=== PATIENT | male | born 1955 | race Caucasian/White ===

== ENCOUNTER → 2017-06-16 | Outpatient (REF) ==
--- NOTE | 2017-06-16 11:23 | REP ---
Left knee series: Five views. History: Degenerative disc disease. Findings: Five views of the left knee demonstrate some vascular calcification. A normal fabella is seen. Joint spaces are preserved. No bony destructive lesion is seen. Impression: No significant bony abnormality. Mild vascular calcification. Signed by Manoj Cee MD 06/16/2017 11:25 A
--- NOTE | 2017-06-16 11:28 | REP ---
Lumbar spine series: Three views. History: Degenerative disc disease. No comparison views. Findings: Frontal and lateral views are obtained. There is moderate diffuse degenerative disc disease throughout the visualized thoracic and lumbar levels. In the lumbar spine, this is most pronounced at L2-3 and L3-4. There is a dextroconvex mild lumbar rotoscoliotic curve. Pedicles and posterior elements are intact. There is no evidence of spondylolysis or spondylolisthesis. There is fairly advanced osteoarthritic facet hypertrophy and sclerosis bilaterally at L5-S1 and L4-5. Sacrum and SI joints are intact. Impression: Fairly advanced degenerative spondylosis changes. Signed by Manoj Cee MD 06/16/2017 12:50 P
== END ==
LOC: M SMT 10:14
PROVIDERS: ATTEND Internal Medicine
DX: M51.36 Other intervertebral disc degeneration, lumbar region (principal)

== ENCOUNTER → 2023-08-10 | Outpatient (CLI) | payer OTHER | LOC: M PLALAB 14:39 | PROVIDERS: ATTEND Psychiatry & Neurology Neurology | DX: R56.9 Unspecified convulsions (principal) ==

== ENCOUNTER 2024-04-18 16:20 | Inpatient (IN) | payer OTHER ==
[2024-04-18] VITALS (9 sets, daily range): BP systolic 136–210; BP diastolic 62–99; TEMP 99.4; O2SAT 91–95
[~2024-04-18] VITALS: Ht 170.2 cm; Wt 67.3 kg
[2024-04-18] MEDS ORDERED: LORazepam 2 MG TAB PO PRN (19:40)
[2024-04-18] MEDS ORDERED: dexmedeTOMIDine (4MCG/ML)200MCG/50ML BTL (PRECEDEX) As Ordered ONE (20:22)
[2024-04-18] MEDS: dexmedeTOMidine 200 MCG in IV 1 EA IV SCH (20:37)
[2024-04-18] MEDS: OLANZapine INTRAMUSCULAR 10MG VIAL IM ONE (20:37)
[2024-04-18] MEDS: THIAMINE 100 MG TAB PO SCH (20:38)
[2024-04-18 21:14] LABS: HEMATOCRIT 40.9 % (42.0-52.0); HEMOGLOBIN 13.7 g/dl (13.5-17.5); MEAN CORPUSCULAR HEMOGLOBIN 30.9 pg (27.0-33.0); MEAN CORPUSCULAR HGB CONC 33.5 g/dl (32.0-36.5); MEAN CORPUSCULAR VOLUME 92.1 fl (80.0-96.0); PLATELET COUNT, AUTOMATED 147 10^3/uL (150-450); RED BLOOD COUNT 4.44 10^6/uL (4.30-6.10); WHITE BLOOD COUNT 8.8 10^3/uL (4.0-10.0)
[2024-04-18] MEDS: hydrALAZINE 20MG/ML 1ML VIAL IV STA (21:28)
[2024-04-18 21:42] LABS: ALBUMIN 3.4 G/DL (3.2-5.2); ALKALINE PHOSPHATASE 125 U/L (46-116); ALT/SGPT 14 U/L (7.0-40); AST/SGOT 36 U/L (<34); BILIRUBIN,TOTAL 0.5 MG/DL (0.3-1.2); BLOOD UREA NITROGEN 12 MG/DL (9-23); CALCIUM LEVEL 8.8 MG/DL (8.3-10.6); CARBON DIOXIDE LEVEL 29 MMOL/L (20-31); CHLORIDE LEVEL 105 MMOL/L (98-107); CREATININE FOR GFR 0.58 MG/DL (0.70-1.30); GLOMERULAR FILTRATION RATE > 60.0 (>49); GLUCOSE, FASTING 125 MG/DL (74-106); POTASSIUM SERUM 4.2 MMOL/L (3.5-5.1); SODIUM LEVEL 138 MMOL/L (136-145); TOTAL PROTEIN 6.6 G/DL (5.7-8.2)
[2024-04-18] MEDS ORDERED: IPRATROPIUM 0.5MG/ALBUTEROL 2.5MG INH SOL UD 3ML (DUONEB) NEB PRN (21:45)
[2024-04-18] MEDS: LR 1,000 ML IV SCH (21:58)
[2024-04-18] MEDS: niCARdipine IV 40 MG in IV 1 EA IV SCH (23:13)
[2024-04-19] VITALS (23 sets, daily range): BP systolic 108–185; BP diastolic 61–97; TEMP 98–99.1; O2SAT 93–99
[2024-04-19] MEDS: OLANZapine INTRAMUSCULAR 10MG VIAL IM ONE (03:25)
[2024-04-19 05:09] LABS: HEMATOCRIT 45.5 % (42.0-52.0); HEMOGLOBIN 15.5 g/dl (13.5-17.5); MEAN CORPUSCULAR HEMOGLOBIN 30.8 pg (27.0-33.0); MEAN CORPUSCULAR HGB CONC 34.1 g/dl (32.0-36.5); MEAN CORPUSCULAR VOLUME 90.5 fl (80.0-96.0); PLATELET COUNT, AUTOMATED 152 10^3/uL (150-450); RED BLOOD COUNT 5.03 10^6/uL (4.30-6.10); WHITE BLOOD COUNT 8.4 10^3/uL (4.0-10.0)
[2024-04-19 05:35] LABS: BLOOD UREA NITROGEN 10 MG/DL (9-23); CALCIUM LEVEL 9.2 MG/DL (8.3-10.6); CARBON DIOXIDE LEVEL 29 MMOL/L (20-31); CHLORIDE LEVEL 106 MMOL/L (98-107); CREATININE FOR GFR 0.48 MG/DL (0.70-1.30); GLOMERULAR FILTRATION RATE > 60.0 (>49); GLUCOSE, FASTING 136 MG/DL (74-106); MAGNESIUM LEVEL 1.7 MG/DL (1.8-2.4); POTASSIUM SERUM 3.8 MMOL/L (3.5-5.1); SODIUM LEVEL 139 MMOL/L (136-145)
[2024-04-19] MEDS: MAG SULF 1GM/100ML (MAG RUN) 1 GM in IV 1 EA IV ONE (05:44)
[2024-04-19] MEDS ORDERED: CLOB5CR TOP (08:44)
[2024-04-19] MEDS ORDERED: DOXY100C3 PO (08:44)
[2024-04-19] MEDS ORDERED: LAMO100T3 PO (08:44)
[2024-04-19] MEDS ORDERED: LEVE10003 PO (08:44)
[2024-04-19] MEDS ORDERED: PRED20TA PO (08:44)
[2024-04-19] MEDS ORDERED: LEXA1TAB PO (08:44)
[2024-04-19] MEDS ORDERED: ALFU10TA23 PO (08:44)
[2024-04-19] MEDS ORDERED: PROP20TA72 PO (08:44)
[2024-04-19] MEDS ORDERED: HYDR-3363 PO (08:44)
[2024-04-19] MEDS ORDERED: BUPR8SUB SL (08:44)
[2024-04-19] MEDS ORDERED: SYMB16INH PO (08:44)
[2024-04-19] MEDS ORDERED: LAMO25TA4 PO (08:44)
[2024-04-19] MEDS ORDERED: GABA-284 PO (08:44)
[2024-04-19] MEDS ORDERED: HOME MED LIST COMPLETE! XX SCH (08:45)
[2024-04-19] MEDS: PROPRANOLOL 20 MG TAB PO SCH (09:00)
[2024-04-19] MEDS: levETIRAcetam 250MG TABLET (KEPPRA) PO SCH (09:00)
[2024-04-19] MEDS: PANTOPRAZOLE 40MG VIAL IV SCH (13:39)
[2024-04-19] MEDS: SYMBICORT 160/4.5MCG INHALER 6GM INH SCH (13:41)
[2024-04-19] MEDS: BUPRENORPHINE HCL 8MG SUBINGUAL TABLET SL SCH (16:00)
[2024-04-19] MEDS: GABAPENTIN 400MG CAP PO SCH (16:00)
[2024-04-19] MEDS: ESCITALOPRAM OXALATE 10 MG TAB (LEXAPRO) PO SCH (17:50)
[2024-04-19] MEDS: FOLIC ACID 1MG TAB PO SCH (17:50)
[2024-04-19] MEDS: MULTIVITAMINS/MINERALS THERAP 1 TAB PO SCH (17:50)
[2024-04-19] MEDS: ENOXAPARIN 40MG/0.4ML SYRINGE (J1650 PER 10MG) SC SCH (17:51)
[2024-04-19] MEDS ORDERED: LORazepam 2 MG TAB XX PRN (18:55)
[2024-04-19] MEDS ORDERED: LORazepam 2 MG/ML 1ML VIAL IV PRN (19:00)
[2024-04-19] MEDS: OLANZapine INTRAMUSCULAR 10MG VIAL IM STA (19:06)
[2024-04-19] MEDS: OXAZEPAM 15MG CAP PO SCH (20:27)
[2024-04-19] MEDS: lamoTRIgine 25MG TAB PO SCH (20:28)
[2024-04-19] MEDS: lamoTRIgine 100MG TAB PO SCH (20:28)
[2024-04-20] VITALS (29 sets, daily range): BP systolic 82–196; BP diastolic 50–98; TEMP 97.6–99; O2SAT 83–98
[2024-04-20] MEDS ORDERED: TAMSULOSIN 0.4 MG CAP PO SCH (09:00)
[2024-04-20] MEDS: CLOBETASOL PROPIONATE EMOLLIENT 0.05% CR 60 GM TOP SCH (09:32)
[2024-04-20 09:54] LABS: ALKALINE PHOSPHATASE 119 U/L (46-116); ALT/SGPT 15 U/L (7.0-40); AST/SGOT 21 U/L (<34); BILIRUBIN,TOTAL 0.6 MG/DL (0.3-1.2); BLOOD UREA NITROGEN 14 MG/DL (9-23); CALCIUM LEVEL 8.9 MG/DL (8.3-10.6); CARBON DIOXIDE LEVEL 33 MMOL/L (20-31); CHLORIDE LEVEL 105 MMOL/L (98-107); CREATININE FOR GFR 0.64 MG/DL (0.70-1.30); GLOMERULAR FILTRATION RATE > 60.0 (>49); GLUCOSE, FASTING 126 MG/DL (74-106); MAGNESIUM LEVEL 1.7 MG/DL (1.8-2.4); PHOSPHORUS LEVEL 3.6 MG/DL (2.4-5.1); POTASSIUM SERUM 4.7 MMOL/L (3.5-5.1); SODIUM LEVEL 139 MMOL/L (136-145); TOTAL PROTEIN 6.1 G/DL (5.7-8.2)
[2024-04-20] MEDS: FINASTERIDE 5MG TAB PO SCH (10:45)
[2024-04-20] MEDS ORDERED: MOM 30ML SUSPENSION UDC PO PRN (14:55)
[2024-04-20] MEDS: LR 1,000 ML IV ONE (16:28)
[2024-04-20] MEDS: TAMSULOSIN 0.4 MG CAP PO SCH (18:33)
[2024-04-20] MEDS: OXAZEPAM 15MG CAP PO SCH (20:08)
[2024-04-20] MEDS: ACETAMINOPHEN TAB 650MG DOSE (2X325MG) PO PRN (23:50)
[2024-04-21 04:52] VITALS: BP 157/70; TEMP 98; O2SAT 85
[2024-04-21 05:00] VITALS: O2SAT 94
[2024-04-21 07:36] VITALS: BP 146/76; TEMP 98.1; O2SAT 94
[2024-04-21 07:37] VITALS: BP 135/78; O2SAT 94
[2024-04-21 07:39] VITALS: BP 126/74
[2024-04-21 08:00] VITALS: BP 146/75
[2024-04-21] MEDS: NICOTINE 21MG/24HR 1 EA TRANSDERMAL TD SCH (08:33)
[2024-04-21] MEDS ORDERED: FINA5TAB2 PO (11:12)
[2024-04-21] MEDS ORDERED: NICO21PAT TD (11:12)
[2024-04-21] MEDS ORDERED: FLOM0.4C39 PO (11:12)
== END 2024-04-21 15:00 | disposition home or self-care (01) | DRG 93 ==
LOC: M ICU 19:45
PROVIDERS: ADMIT Internal Medicine; ATTEND Student in an Organized Health Care Education/Training Program
DX: G92.8 Other toxic encephalopathy (principal); F10.11 Alcohol abuse, in remission; G40.909 Epilepsy, unspecified, not intractable, without status epilepticus; Z78.1 Physical restraint status; E83.42 Hypomagnesemia; R33.9 Retention of urine, unspecified; J44.9 Chronic obstructive pulmonary disease, unspecified; F17.200 Nicotine dependence, unspecified, uncomplicated; N40.1 Benign prostatic hyperplasia with lower urinary tract symptoms; G62.9 Polyneuropathy, unspecified; G25.0 Essential tremor; F32.A Depression, unspecified; I95.1 Orthostatic hypotension; R53.1 Weakness; Z79.899 Other long term (current) drug therapy; T50.905A Adverse effect of unspecified drugs, medicaments and biological substances, initial encounter

== ENCOUNTER 2024-11-21 21:21 | Inpatient (IN) | payer MEDICARE, OTHER ==
[~2024-11-21] VITALS: Ht 170.2 cm; Wt 59.4 kg
[~2024-11-21 21:21] MED LIST: ALFU10TA23 PO; BUPR8SUB SL; CLOB5CR TOP; DOXY100C3 PO; FINA5TAB2 PO; FLOM0.4C39 PO; GABA-284 PO; HYDR-3363 PO; LAMO100T3 PO; LAMO25TA4 PO; LEVE10003 PO; LEXA1TAB PO; NICO21PAT TD; PRED20TA PO; PROP20TA72 PO; SYMB16INH PO
[2024-11-21] MEDS ORDERED: LORazepam 2 MG TAB PO PRN (22:10)
[2024-11-22] VITALS (60 sets, daily range): BP systolic 80–208; BP diastolic 48–120; TEMP 97–98; O2SAT 86–98
[2024-11-22] MEDS ORDERED: LORazepam 2 MG/ML 1ML VIAL IV PRN (01:25)
[2024-11-22] MEDS: dexmedeTOMidine 60 MCG in IV 1 EA IV ONE (01:40)
[2024-11-22] MEDS: dexmedeTOMidine 200 MCG in IV 1 EA IV SCH (01:50)
[2024-11-22] MEDS ORDERED: VENTAER INH (02:06)
[2024-11-22] MEDS ORDERED: TAMS1CAP17 PO (02:07)
[2024-11-22] MEDS ORDERED: BREO1INH INH (02:07)
[2024-11-22] MEDS ORDERED: FINA5TAB2 PO (02:08)
[2024-11-22] MEDS ORDERED: MED REC IN PROGRESS XX SCH (02:10)
[2024-11-22] MEDS: OLANZapine INTRAMUSCULAR 10MG VIAL IM ONE ×2 (04:42→23:04)
[2024-11-22 04:53] LABS: HEMATOCRIT 41.7 % (42.0-52.0); HEMOGLOBIN 13.9 g/dl (13.5-17.5); MEAN CORPUSCULAR HEMOGLOBIN 31.3 pg (27.0-33.0); MEAN CORPUSCULAR HGB CONC 33.3 g/dl (32.0-36.5); MEAN CORPUSCULAR VOLUME 93.9 fl (80.0-96.0); PLATELET COUNT, AUTOMATED 160 10^3/uL (150-450); RED BLOOD COUNT 4.44 10^6/uL (4.30-6.10); WHITE BLOOD COUNT 8.1 10^3/uL (4.0-10.0)
[2024-11-22 05:18] LABS: ALBUMIN 3.4 G/DL (3.2-5.2); ALKALINE PHOSPHATASE 103 U/L (40-129); ALT/SGPT 20 U/L (7.0-40); AST/SGOT 41 U/L (<34); BILIRUBIN,TOTAL 0.8 MG/DL (0.3-1.2); BLOOD UREA NITROGEN 17 MG/DL (9-23); CALCIUM LEVEL 8.9 MG/DL (8.3-10.6); CARBON DIOXIDE LEVEL 32 MMOL/L (20-31); CHLORIDE LEVEL 101 MMOL/L (98-107); CREATININE FOR GFR 0.66 MG/DL (0.70-1.30); GLOMERULAR FILTRATION RATE > 60.0 (>49); GLUCOSE, FASTING 112 MG/DL (74-106); POTASSIUM SERUM 4.5 MMOL/L (3.5-5.1); SODIUM LEVEL 138 MMOL/L (136-145); TOTAL PROTEIN 6.5 G/DL (5.7-8.2)
[2024-11-22] MEDS: LR 1,000 ML IV SCH (07:12)
[2024-11-22] MEDS: LORazepam 2 MG/ML 1ML VIAL IV STA (07:12)
[2024-11-22 07:30] LABS: KETONE, URINE AUTO RFX NEGATIVE (NEGATIVE); LEUKOCYTE ESTERASE UR AUTO RFX NEGATIVE (NEGATIVE); MUCUS, URINE RFX SMALL (NEGATIVE); NITRITE, URINE AUTO RFX NEGATIVE (NEGATIVE); RBC, URINE AUTO RFX 3 /HPF (0-3); SQUAM EPITHELIAL CELL UR AURFX 0 /HPF (0-6); WBC, URINE AUTO RFX 0 /HPF (0-3)
[2024-11-22 07:53] LABS: AMPHETAMINES LEVEL URINE NEGATIVE (NEGATIVE); BARBITURATES URINE NEGATIVE (NEGATIVE); COCAINE METABOLITE URINE NEGATIVE (NEGATIVE); METHADONE URINE NEGATIVE (NEGATIVE); OPIATES URINE NEGATIVE (NEGATIVE); PHENCYCLIDINE URINE NEGATIVE (NEGATIVE)
[2024-11-22 07:58] LABS: BENZODIAZEPINES URINE POSITIVE (NEGATIVE); CANNABINOIDS URINE POSITIVE (NEGATIVE)
[2024-11-22] MEDS: FOLIC ACID 1MG TAB PO SCH (09:00)
[2024-11-22] MEDS: THIAMINE 100 MG TAB PO SCH (09:00)
[2024-11-22] MEDS: MULTIVITAMINS/MINERALS THERAP 1 TAB PO SCH (09:00)
[2024-11-22] MEDS: OLANZapine INTRAMUSCULAR 10MG VIAL IM STA (09:29)
[2024-11-22] MEDS: diazePAM 10MG/2ML SYRINGE IV STA (09:38)
[2024-11-22] MEDS: diazePAM 10MG/2ML SYRINGE IV PRN (09:50)
[2024-11-22] MEDS: LORazepam 2 MG/ML 1ML VIAL IV PRN (11:19)
[2024-11-22] MEDS ORDERED: HOME MED LIST COMPLETE! XX SCH (14:05)
[2024-11-22 14:11] LABS: VENOUS BASE EXCESS 0.2 (-2.0-2.0); VENOUS HCO3 25.3 MMOL/L (23.0-27.0); VENOUS O2 SATURATION 99.1 % (60.0-80.0); VENOUS PARTIAL PRESSURE CO2 42.7 mmHg (38.0-50.0); VENOUS PARTIAL PRESSURE O2 224.1 mmHg (30.0-50.0); VENOUS PH 7.391 UNITS (7.330-7.430); VENOUS STANDARD HCO3 24.7 MMOL/L; VENOUS TOTAL CO2 26.6 MMOL/L (24.0-28.0)
[2024-11-22] MEDS: ENOXAPARIN 40MG/0.4ML SYRINGE (J1650 PER 10MG) SC SCH (15:30)
[2024-11-22] MEDS: PANTOPRAZOLE 40MG VIAL IV SCH (15:30)
[2024-11-22] MEDS: levETIRAcetam INJection 1,000 MG in IV 1 EA IV SCH (16:19)
[2024-11-22] MEDS: niCARdipine IV 40 MG in IV 1 EA IV SCH (22:15)
[2024-11-23] VITALS (49 sets, daily range): BP systolic 119–195; BP diastolic 58–98; TEMP 97–98.6; O2SAT 89–98
[2024-11-23 05:15] LABS: ALBUMIN 3.5 G/DL (3.2-5.2); ALKALINE PHOSPHATASE 108 U/L (40-129); ALT/SGPT 26 U/L (7.0-40); AST/SGOT 45 U/L (<34); BILIRUBIN,TOTAL 0.9 MG/DL (0.3-1.2); BLOOD UREA NITROGEN 16 MG/DL (9-23); CALCIUM LEVEL 8.6 MG/DL (8.3-10.6); CARBON DIOXIDE LEVEL 27 MMOL/L (20-31); CHLORIDE LEVEL 106 MMOL/L (98-107); CREATININE FOR GFR 0.49 MG/DL (0.70-1.30); GLOMERULAR FILTRATION RATE > 60.0 (>49); GLUCOSE, FASTING 112 MG/DL (74-106); MAGNESIUM LEVEL 1.7 MG/DL (1.8-2.4); POTASSIUM SERUM 4.4 MMOL/L (3.5-5.1); SODIUM LEVEL 142 MMOL/L (136-145); TOTAL PROTEIN 6.7 G/DL (5.7-8.2)
[2024-11-23] MEDS: MAG SULF 1GM/100ML (MAG RUN) 1 GM in IV 1 EA IV ONE (05:41)
[2024-11-23 06:10] LABS: VENOUS BASE EXCESS 2.5 (-2.0-2.0); VENOUS HCO3 29.3 MMOL/L (23.0-27.0); VENOUS O2 SATURATION 64.5 % (60.0-80.0); VENOUS PARTIAL PRESSURE CO2 53.1 mmHg (38.0-50.0); VENOUS PARTIAL PRESSURE O2 34.9 mmHg (30.0-50.0); VENOUS STANDARD HCO3 25.8 MMOL/L
[2024-11-23 06:19] LABS: BASO % 0.4 % (0.0-1.0); EOS % 0.1 % (0.0-3.0); HEMATOCRIT 45.9 % (42.0-52.0); HEMOGLOBIN 15.6 g/dl (13.5-17.5); LYMPH # 1.2 10^3/uL (1.5-5.0); LYMPH % 14.5 % (24.0-44.0); MEAN CORPUSCULAR HEMOGLOBIN 31.5 pg (27.0-33.0); MEAN CORPUSCULAR VOLUME 92.5 fl (80.0-96.0); MONO # 0.7 10^3/uL (0.0-0.8); MONO % 8.6 % (2.0-8.0); NEUTROPHILS # 6.2 10^3/uL (1.5-8.5); PLATELET COUNT, AUTOMATED 143 10^3/uL (150-450); RED BLOOD COUNT 4.96 10^6/uL (4.30-6.10); WHITE BLOOD COUNT 8.2 10^3/uL (4.0-10.0)
[2024-11-23] MEDS: ERYTHROMYCIN OPHTH OINT OU SCH (11:15)
[2024-11-23] MEDS: IPRATROPIUM 0.5MG/ALBUTEROL 2.5MG INH SOL UD 3ML (DUONEB) NEB SCH (20:14)
[2024-11-24] VITALS (10 sets, daily range): BP systolic 114–173; BP diastolic 58–105; TEMP 97.8–101; O2SAT 91–99
[2024-11-24] MEDS: ACETAMINOPHEN 325 MG TAB PO ONE (04:57)
[2024-11-24 11:48] LABS: THYROID STIMULATING HORMONE 1.207 uIU/ML (0.55-4.78); VITAMIN B12 LEVEL 724 PG/ML (211-911)
[2024-11-24 11:50] LABS: FOLATE 22.52 NG/ML (>5.4)
[2024-11-24] MEDS ORDERED: PROHANCE 279.3MG/ML 15ML VIAL As Ordered ONE (14:25)
[2024-11-24] MEDS: NICOTINE 21MG/24HR 1 EA TRANSDERMAL TD SCH (22:30)
[2024-11-25 04:00] VITALS: BP 175/87; TEMP 98.2; O2SAT 93
[2024-11-25 07:29] VITALS: BP 170/90; TEMP 98.5; O2SAT 97
[2024-11-25 15:17] VITALS: BP 166/94; TEMP 98.7; O2SAT 100
[2024-11-25] MEDS: MIRALAX *UNIT DOSE* 17GM PACKET PO SCH (16:16)
[2024-11-25] MEDS: GABAPENTIN 400MG CAP PO SCH (16:17)
[2024-11-25] MEDS: BUPRENORPHINE HCL 8MG SUBINGUAL TABLET SL SCH (16:17)
[2024-11-25 16:19] LABS: MB/CK RELATIVE INDEX 0.81 (< OR =4)
[2024-11-25 19:29] VITALS: BP 161/90; TEMP 98.7; O2SAT 100
[2024-11-25] MEDS: lamoTRIgine 100MG TAB PO SCH (21:07)
[2024-11-25] MEDS: lamoTRIgine 25MG TAB PO SCH (21:07)
[2024-11-26 04:00] VITALS: BP 161/90; TEMP 98.7; O2SAT 100
[2024-11-26 04:39] VITALS: BP 173/93; TEMP 98.3; O2SAT 92
[2024-11-26 07:19] VITALS: BP 147/80; TEMP 98.9; O2SAT 95
[2024-11-26] MEDS: PANTOPRAZOLE 20 MG TAB PO SCH (08:20)
[2024-11-26] MEDS: ESCITALOPRAM OXALATE 10 MG TAB (LEXAPRO) PO SCH (08:20)
[2024-11-26] MEDS: FINASTERIDE 5MG TAB PO SCH (08:21)
== END 2024-11-26 13:13 | disposition home or self-care (01) | DRG 92 ==
LOC: M LDI 11-22 01:20 → M ICU 11-22 01:23 → M PCU 11-24 14:54
PROVIDERS: ADMIT Internal Medicine; ATTEND Student in an Organized Health Care Education/Training Program
DX: G92.8 Other toxic encephalopathy (principal); R44.3 Hallucinations, unspecified; G40.909 Epilepsy, unspecified, not intractable, without status epilepticus; F17.200 Nicotine dependence, unspecified, uncomplicated; R45.1 Restlessness and agitation; I10 Essential (primary) hypertension; E78.5 Hyperlipidemia, unspecified; F41.9 Anxiety disorder, unspecified; G89.29 Other chronic pain; N40.0 Benign prostatic hyperplasia without lower urinary tract symptoms; M54.9 Dorsalgia, unspecified; H10.89 Other conjunctivitis; R00.1 Bradycardia, unspecified; E83.42 Hypomagnesemia; T40.725A Adverse effect of synthetic cannabinoids, initial encounter; J44.9 Chronic obstructive pulmonary disease, unspecified; Z79.899 Other long term (current) drug therapy; Z78.1 Physical restraint status; Z99.81 Dependence on supplemental oxygen